=== PATIENT | female | born 1945 | race Caucasian/White ===

== ENCOUNTER 2020-01-20 20:56 | Emergency (ER) | payer MEDICARE ==
[2020-01-20] MEDS ORDERED: ONDANSETRON ODT 4 MG TAB ONE (21:46)
[2020-01-20] MEDS ORDERED: HYDROMORPHONE 1 MG/1 ML AMP ONE (21:46)
== END 2020-01-21 00:17 | disposition home or self-care (01) ==
LOC: EDH 20:56
DX: S16.1XXA Strain of muscle, fascia and tendon at neck level, initial encounter (principal); S09.90XA Unspecified injury of head, initial encounter; M54.6 Pain in thoracic spine; I10 Essential (primary) hypertension; E11.9 Type 2 diabetes mellitus without complications; Z88.0 Allergy status to penicillin; Z88.6 Allergy status to analgesic agent; Z72.0 Tobacco use; Z90.710 Acquired absence of both cervix and uterus; Z98.890 Other specified postprocedural states; W18.39XA Other fall on same level, initial encounter; Y93.01 Activity, walking, marching and hiking; Y92.89 Other specified places as the place of occurrence of the external cause; Y99.8 Other external cause status
CPT/HCPCS: 70450; 71045; 72125; 72128; 72170; 93005; 96372; 99285; J1170